=== PATIENT | male | born 1960 | race Two or more races ===

== ENCOUNTER 2017-05-16 08:39 | Day surgery (SDC) | payer OTHER ==
[2017-05-15 10:36] VITALS: BMI 31.8
[2017-05-16] MEDS ORDERED: PROPOFOL 20 ML ONE ×3 (09:57)
[2017-05-16] MEDS ORDERED: LIDOCAINE HCL 2% (20ML MULTI-DOSE VIAL) NR ONE (09:57)
[2017-05-16] MEDS ORDERED: LIDOCAINE HCL/PF 2% SDV 5ML VIAL ONE (09:57)
[2017-05-16 10:42] VITALS: TEMP 98.2
[2017-05-16 14:23] VITALS: BP 102/61; PULSE 71
--- NOTE | 2017-05-19 11:09 | PATH ---
Surgical Pathology Report Patient Name: WILMA CA [facility]. Rec. #: [id number] /Age/Gender: 1960 (Age: 57) / M Account: [id number] Location: U-ENDOSCOPY Taken: 05/16/2017 Received: 05/16/2017 Reported: 05/19/2017 Physicians: Arvin Lanier M.D. Specimen(s) Received A: BX ANTRUM B: BX GE JUNCTION Clinical History Acid reflux, dyspepsia Distal esophagitis Final Diagnosis A. STOMACH, ANTRUM, BIOPSY: FOCAL MILD CHRONIC GASTRITIS. IMMUNOSTAIN FOR H. PYLORI IS NEGATIVE. B. GE JUNCTION, BIOPSY: SQUAMOUS AND GASTRIC MUCOSA WITH CHRONIC INFLAMMATION AND PAPILLOMATOSIS SUGGESTIVE OF REFLUX ESOPHAGITIS. NO INTESTINAL METAPLASIA IDENTIFIED (NO BAEZ'S IDENTIFIED). Electronically Signed Yogi Nazario M.D. Gross Description A. Received in formalin, labeled "biopsy antrum" are 3 roldan, irregular portions of soft tissue ranging from 0.1-0.6 cm. in greatest dimension. The specimens are submitted in toto in one cassette. B. Received in formalin, labeled "biopsy GE junction" are 4 roldan, irregular portions of soft tissue ranging from 0.1-0.5 cm. in greatest dimension. The specimens are submitted in toto in one cassette. /05/16/2017 saudi05/16/2017
== END 2017-05-16 12:20 | disposition home or self-care (01) ==
LOC: JASU-ENDO 08:39
PROVIDERS: ATTEND Internal Medicine Gastroenterology
PROC: 0DB68ZX Excision of Stomach, Via Natural or Artificial Opening Endoscopic, Diagnostic (ICD-10-PCS; 2017-05-16)
PROC: 0DB48ZX Excision of Esophagogastric Junction, Via Natural or Artificial Opening Endoscopic, Diagnostic (ICD-10-PCS; principal; 2017-05-16 10:00)
DX: K20.9 Esophagitis, unspecified (principal); K31.7 Polyp of stomach and duodenum
CPT/HCPCS: 88305-TC; 88342-TC

== ENCOUNTER 2019-11-02 09:23 | Day surgery (SDC) | payer OTHER ==
[2019-11-01 14:01] VITALS: BMI 30.9
[2019-11-02 10:35] VITALS: TEMP 98.1
[2019-11-02 11:05] VITALS: PULSE 65
[2019-11-02 12:35] VITALS: BP 133/76
--- NOTE | 2019-11-03 16:20 | PATH ---
Surgical Pathology Report Patient Name: WILMA CA [facility]. Rec. #: [id number] /Age/Gender: 1960 (Age: 59) / M Account: [id number] Location: U-ENDOSCOPY Taken: 11/02/2019 Received: 11/02/2019 Reported: 11/03/2019 Physicians: Robb Castro M.D. Specimen(s) Received A: PROXIMAL TRANSVERSE COLON POLYP B: DISTAL TRANSVERSE COLON POLYP Clinical History History of colon polyps Postoperative diagnosis: Colon polyps Final Diagnosis A. PROXIMAL TRANSVERSE COLON POLYP, POLYPECTOMY: TUBULAR ADENOMA. B. DISTAL TRANSVERSE COLON POLYP, POLYPECTOMY: TUBULAR ADENOMA. Electronically Signed Juana Cabrera M.D. Gross Description A. Received in formalin, labeled "proximal transverse colon polyp" is a roldan, irregular portion of soft tissue measuring 0.7 cm. in greatest dimension. The specimen is submitted in toto in one cassette. B. Received in formalin, labeled "distal transverse colon polyp" is a roldan, irregular portion of soft tissue measuring 0.6 cm. in greatest dimension. The specimen is submitted in toto in one cassette. DL/11/02/2019 saudi/11/02/2019
== END 2019-11-02 13:00 | disposition home or self-care (01) ==
LOC: JASU-ENDO 09:23
PROVIDERS: ATTEND Internal Medicine Gastroenterology
PROC: 0D5L8ZZ Destruction of Transverse Colon, Via Natural or Artificial Opening Endoscopic (ICD-10-PCS; principal; 2019-11-02 10:15)
DX: Z12.11 Encounter for screening for malignant neoplasm of colon (principal); Z86.010 Personal history of colon polyps; I10 Essential (primary) hypertension; E11.9 Type 2 diabetes mellitus without complications; Z79.84 Long term (current) use of oral hypoglycemic drugs
CPT/HCPCS: 88305-TC

== ENCOUNTER 2019-11-30 06:32 | Inpatient (IN) | payer OTHER ==
--- NOTE | 2019-11-30 08:03 | PDOC ---
History of Present Illness - General Chief Complaint: Urinary Problem Stated Complaint: FEVER,URINARY PROBLEM Time Seen by Provider: 11/30/19 07:29 History Source: Patient Exam Limitations: Clinical Condition - History of Present Illness Initial Comments: 11/30/19 07:58 Patient with past medical history of hkb-myldyra-ozdlmvzms diabetes, hyperlipidemia and hypertension on meds presented with complaint of 1 day history of urinary urgency, dysuria and frequency. Patient also reported whole body aches upon waking patient report fever of 102 F overnight which has self improved without medication this morning. Denies nausea, vomiting, abdominal pain, shortness of breath, dizziness. Patient did not take anything for symptoms. Patient denies any other symptoms Is this a multiple visit Asthma Patient?: No Timing/Duration: 24 hours Past History - Past Medical History Allergies/Adverse Reactions: Allergies Allergy/AdvReac Type Severity Reaction Status Date / Time doxycycline AdvReac Rash Verified 11/30/19 07:05 iodine AdvReac Nausea Verified 11/30/19 07:05 Home Medications: Ambulatory Orders Ascorbic Acid [Vitamin C] 250 mg PO DAILY 05/15/17 Aspirin [ASA -] 81 mg PO DAILY 05/15/17 Cholecalciferol (Vitamin D3) [Vitamin D -] 400 unit PO DAILY 05/15/17 Multivit-Min/FA/Lycopen/Lutein [Centrum Silver Men Tablet] 1 each PO DAILY 05/15 Ramipril 2.5 mg PO HS 05/15/17 Vitamin B Complex 1 tab PO DAILY 05/15/17 Vitamin E 1 tab PO ASDIR 05/15/17 Zinc 50 mg PO WEEKLY 05/15/17 Atorvastatin Ca [Lipitor] 20 mg PO HS 11/01/19 L.acidoph,Paracasei, B.lactis [Probiotic] 1 each PO DAILY 11/02/19 metFORMIN HCL [Metformin HCl] 500 mg PO BID 11/30/19 Cardiac Disorders: Yes (CARDIAC STENTS) COPD: No Diabetes: Yes (NIDDM) GI Disorders: Yes (ACID REFLUX) Hypercholesterolemia: Yes Liver Disease: Yes (FATTY LIVER DISEASE) Other medical history: renal stones - Psycho Social/Smoking Cessation Hx Smoking History: Never smoked Have you smoked in the past 12 months: No If you are a former smoker, when did you quit?: 2005 Hx Alcohol Use: Yes (RARELY) Drug/Substance Use Hx: No Substance Use Type: None Hx Substance Use Treatment: No Review of Systems - Review of Systems Able to Perform ROS?: Yes Is the patient limited Indian proficient: No Constitutional: Yes: Chills, Fever, Malaise HEENTM: No: Symptoms Reported, See HPI, Eye Pain, Blurred Vision, Tearing, Recent change in vision, Double Vision, Cataracts, Ear Pain, Ocular Prothesis, Ear Discharge, Nose Pain, Nose Congestion, Tinnitus, Nose Bleeding, Hearing Loss , Throat Pain, Throat Swelling, Mouth Pain, Dental Problems, Difficulty Swallowing, Mouth Swelling, Other Respiratory: No: Symptoms reported, See HPI, Cough, Orthopnea, Shortness of Breath, SOB with Exertion, SOB at Rest, Stridor, Wheezing, Productive cough, Hemoptysis, Other Cardiac (ROS): No: Symptoms Reported, See HPI, Chest Pain, Edema, Irregular Heart Rate, Lightheadedness, Palpitations, Syncope, Chest Tightness, Other ABD/GI: No: Symptoms Reported, See HPI, Abd. Pain w/ defecation, Constipated, Difficulty Swallowing, Nausea, Rectal Bleeding, Vomiting, Abdominal cramping : Yes: Symptoms Reported, See HPI, Discharge, Frequency, Urgency. No: Burning , Dysuria, Testicular Mass, Testicular Swelling, Testicular Pain Integumentary: No: Symptoms Reported Neurological: No: Symptoms reported All Other Systems: Reviewed and Negative *Physical Exam - Vital Signs Last Vital Signs Temp Pulse Resp BP Pulse Ox 98.8 F 107 H 18 95/41 L 98 11/30/19 07:11 11/30/19 07:11 11/30/19 07:11 11/30/19 07:11 11/30/19 07:11 - Physical Exam General Appearance: Yes: Nourished, Appropriately Dressed. No: Apparent Distress HEENT: positive: Normal ENT Inspection Neck: positive: Supple Respiratory/Chest: positive: Lungs Clear, Normal Breath Sounds. negative: Respiratory Distress, Accessory Muscle Use Cardiovascular: positive: Regular Rhythm, Regular Rate Gastrointestinal/Abdominal: positive: Normal Bowel Sounds, Flat. negative: Tender Musculoskeletal: positive: Normal Inspection Extremity: positive: Normal Inspection Integumentary: positive: Normal Color Neurologic: positive: Fully Oriented, Alert, Normal Response ED Treatment Course - LABORATORY CBC & Chemistry Diagram: 11/30/19 07:47 11/30/19 07:47 Medical Decision Making - Medical Decision Making 11/30/19 08:00 Patient with past medical history of fqf-xdjrcen-ubnopqjte diabetes, hyperlipidemia and hypertension on meds presented with complaint of 1 day history of urinary urgency, dysuria and frequency. Patient also reported whole body aches upon waking patient report fever of 102 F overnight which has self improved without medication this morning. Denies nausea, vomiting, abdominal pain, shortness of breath, dizziness. Patient did not take anything for symptoms. Patient denies any other symptoms Clinical exam unremarkable with patient afebrile. Lungs clear to auscultation bilateral normal cardio exam. Patient noted to have hypotensive but patient reporting his blood pressure with was low and is not unusual to have this low blood pressure. UA, urine culture lab ordered. CBC and chemistry lab ordered. Treat based on lab results 11/30/19 08:48 CBC shows elevated WBC of 27. UA shows moderate bacteria, positive leukocyte and positive nitrate. Given patient with complaint of malaise and intermittent back pain, would admit patient for possible pyelonephritis for IV antibiotics. We will add blood cultures before IV antibiotics. 11/30/19 09:25 Microblog sent to hospitalist for admission. Patient noted in dose of Zosyn 3.375 g IV and awaiting callback from medicine team 11/30/19 09:59 Patient seen by medicine team and accepted admission to Dr. Ruby. Spiral CT ordered to rule out renal stone as requested by medicine team Discharge - Discharge Information Problems reviewed: Yes Clinical Impression/Diagnosis: Pyelonephritis, acute, UTI symptoms Condition: Stable - Admission Yes - Follow up/Referral Referrals: Julio Saavedra MD [Primary Care Provider] - - Patient Discharge Instructions - Post Discharge Activity
[2019-11-30 08:13] LABS: BASO % 0.4 % (0-2.0); HEMATOCRIT 41.7 % (35.4-49); HEMOGLOBIN 13.9 GM/dL (11.7-16.9); LYMPH % 3.8 % (8-40); MCH 32.7 pg (25.7-33.7); MCHC 33.3 g/dl (32.0-35.9); MEAN PLT VOLUME 7.9 fl (7.5-11.1); MONO % 7.6 % (3.8-10.2); NEUT % 88.2 % (42.8-82.8); PLATELET COUNT 229 K/MM3 (134-434); RBC 4.25 M/mm3 (4.00-5.60); RDW 12.9 % (11.9-15.9)
[2019-11-30 08:25] LABS: EPI CELLS 1.3 /HPF (0-5/HPF); HYALINE CASTS 5 /lpf (0-8); PH,URINE 5.5 (5.0-8.0); URINE APPEARANCE CLOUDY; URINE BACTERIA 4625.6 /hpf (NEGATIVE); URINE BILIRUBIN NEGATIVE (NEGATIVE); URINE COLOR DK YELLOW; URINE GLUCOSE (UA) 2+ (NEGATIVE); URINE KETONE 1+ (NEGATIVE); URINE LEUK ESTERASE 2+ (NEGATIVE); URINE NITRITE POSITIVE (NEGATIVE); URINE PROTEIN 1+ (NEGATIVE); URINE RBC 429 /hpf (0-4); URINE UROBILINOGEN 0.2 mg/dL (0.2-1.0); URINE WBC 226 /hpf (0-5)
[2019-11-30] MEDS ORDERED: SODIUM CHLORIDE 1,000 ML IV ONE (08:27)
--- NOTE | 2019-11-30 08:27 | PDOC ---
*Physical Exam - Vital Signs Last Vital Signs Temp Pulse Resp BP Pulse Ox 98.8 F 107 H 18 95/41 L 98 11/30/19 07:11 11/30/19 07:11 11/30/19 07:11 11/30/19 07:11 11/30/19 07:11 ED Treatment Course - LABORATORY CBC & Chemistry Diagram: 12/03/19 07:34 12/03/19 07:34 - ADDITIONAL ORDERS Additional order review: Laboratory Results 11/30/19 07:00 Urine Color Dk yellow Urine Appearance Cloudy Urine pH 5.5 Ur Specific [place] 1.025 Urine Protein 1+ H Urine Glucose (UA) 2+ H Urine Ketones 1+ H Urine Blood 3+ H Urine Nitrite Positive H Urine Bilirubin Negative Urine Urobilinogen 0.2 Ur Leukocyte Esterase 2+ H Urine WBC (Auto) 226 Urine RBC (Auto) 429 Urine Casts (Auto) 5 U Epithel Cells (Auto) 1.3 Urine Bacteria (Auto) 4625.6 11/30/19 07:47 RBC 4.25 MCV 98.0 H MCHC 33.3 RDW 12.9 MPV 7.9 Neutrophils % 88.2 H Lymphocytes % 3.8 L Monocytes % 7.6 Eosinophils % 0.0 Basophils % 0.4 Medical Decision Making - Medical Decision Making 11/30/19 08:25 The patient was seen and evaluated in conjunction with PEACE Munoz under my direct supervision, ancillary studies were reviewed. I independently interviewed and evaluated the patient and I agree with the plan as outlined by PEACE Munoz. pt is a NIDDM, HTN, HL presenting w 1 day of dysuria/frequency, body aches and fever. Denies abd pain, nv, cp, sob, sob, back pain. exam non focal withou tenderness or cva tenderness. bp soft, will give fluids labs noted for leukocytosis. and UA c/w uti 11/30/19 09:25 will give zosyn will admit for further mangaement of uti Discharge - Discharge Information Problems reviewed: Yes Clinical Impression/Diagnosis: Pyelonephritis, acute, UTI symptoms Condition: Stable - Follow up/Referral - Patient Discharge Instructions - Post Discharge Activity
[2019-11-30 08:45] LABS: ALBUMIN 4.2 g/dl (3.4-5.0); BILIRUBIN,TOTAL 1.1 mg/dL (0.2-1); BLOOD UREA NITROGEN 19.4 mg/dL (7-18); CALCIUM 9.1 mg/dL (8.5-10.1); CREATININE 0.9 mg/dL (0.55-1.3); TOT PROT 6.9 g/dl (6.4-8.2)
[2019-11-30] MEDS ORDERED: PIPERACILLIN/TAZOB 3.375 GM 3.375 GM in DEXTROSE 5%-WATER - 50 ML IVPB ONE (09:24)
[2019-11-30] MEDS ORDERED: PIPERACILLIN/TAZOB 3.375 GM 3.375 GM/50 ML BAG IVPB ONE ×2 (09:30→16:09)
[2019-11-30] MEDS ORDERED: MORPHINE SULFATE 2 MG/ML VIAL IVPUSH PRN (10:16)
[2019-11-30] MEDS ORDERED: PIPERACILLIN/TAZOB 3.375 GM 3.375 GM in DEXTROSE 5%-WATER - 50 ML IVPB SCH (10:30)
--- NOTE | 2019-11-30 10:30 | HP ---
CHIEF COMPLAINT: abdominal pain, fever, chills, body aches PCP: Dr. Saavedra HISTORY OF PRESENT ILLNESS: Pt. is a 59 y.o. M w/ PMHx. of NIDDM (Diagnosed 8- 10 years ago), HLD, HTN, GERD(EGD in 2017 showing mild esophagitis), Renal Stones (6-7x in past, last 10 years ago), CAD (s/p 3 stents) presents after 1 day of lower abdominal pain, generalized body aches and fever measured at home to 102 degrees. Pt. states that he also has intermittent bilateral lower back pain. Pt. endorses increased urgency, but feels like he has not completely voided. Pt. denies any overt hematuria, nausea, vomiting, recent illness, or recent antibiotic use. Pt. had a colonoscopy in early October of which 2 tubular adenomas were removed by Dr. Castro. Pt. last saw Dr. Saavedra 1 month ago where a CBC was drawn and a mildly elevated, Pt. was scheduled to follow up in 6 months. Pt. states that he does not check his BGM everyday but during this visit Dr. Saavedra says that his sugars have been steadily increasing. Pt. states he saw Dr. Hodgson last week and everything was ok. ER course was notable for: (1) 1L NS, BCx, UCx. LA (2) (3) Recent Travel: No PAST MEDICAL HISTORY: As above PAST SURGICAL HISTORY: TURP (5-6 years ago), 3 stents placed Social History: Smokin/2 -2PPD x 19 years, quit 2005 Alcohol: Occasional glass of wine Drugs: Denies Diet: "Whatever my sister prepares"- Mostly Chicken and pasta, very little vegetables, lots of water. Pt. works as a household personal assistant and Pet-sitter. Family Hx.: Heart Disease in Mother, Father, Aunt and uncles with SCD in Father( 50s-60s) and Uncles(70s), Older Sister has kidney stones. Allergies doxycycline Adverse Reaction (Verified 11/30/19 07:05) Rash iodine Adverse Reaction (Verified 11/30/19 07:05) Nausea HOME MEDICATIONS: Home Medications Medication Instructions Recorded Ascorbic Acid [Vitamin C] 250 mg PO DAILY 05/15/17 Aspirin [ASA -] 81 mg PO DAILY 05/15/17 Cholecalciferol (Vitamin D3) 400 unit PO DAILY 05/15/17 [Vitamin D -] Multivit-Min/FA/Lycopen/Lutein 1 each PO DAILY 05/15/17 [Centrum Silver Men Tablet] Ramipril 2.5 mg PO HS 05/15/17 Vitamin B Complex 1 tab PO DAILY 05/15/17 Vitamin E 1 tab PO ASDIR 05/15/17 Zinc 50 mg PO WEEKLY 05/15/17 Atorvastatin Ca [Lipitor] 20 mg PO HS 11/01/19 L.acidoph,Paracasei, B.lactis 1 each PO DAILY 11/02/19 [Probiotic] metFORMIN HCL [Metformin HCl] 500 mg PO BID 11/30/19 REVIEW OF SYSTEMS As above PHYSICAL EXAMINATION Vital Signs - 24 hr 11/30/19 11/30/19 07:11 10:05 Temperature 98.8 F 98.4 F Pulse Rate 107 H Pulse Rate [ 89 Left] Respiratory 18 Rate Blood Pressure 95/41 L Blood Pressure 111/69 [Left] O2 Sat by Pulse 98 96 Oximetry (%) GENERAL: Awake, alert, and fully oriented, in no acute distress. HEAD: Normal with no signs of trauma. EYES: Sclera anicteric, conjunctiva clear. EARS, NOSE, THROAT: Ears normal, nares patent, oropharynx clear without exudates. Dry mucous membranes. LUNGS: Breath sounds equal, clear to auscultation bilaterally. No wheezes, and no crackles. No accessory muscle use. HEART: Regular rate and rhythm, normal S1 and S2 without murmur, rub or gallop. ABDOMEN: Soft, lower abdominal tenderness most prominent in suprapubic region, not distended, normoactive bowel sounds, no guarding, no rebound, no masses. MUSCULOSKELETAL: No CVA tenderness. UPPER EXTREMITIES: 2+ radial pulses, warm, well-perfused. No cyanosis. No clubbing. No peripheral edema. LOWER EXTREMITIES: well-perfused. No calf tenderness. No peripheral edema. NEUROLOGICAL: Normal speech. Gait not assessed PSYCHIATRIC: Cooperative. Good eye contact. Appropriate mood and affect. SKIN: Warm, dry, normal turgor, small furuncle at nape Laboratory Results - last 24 hr 11/30/19 11/30/19 11/30/19 07:00 07:47 07:47 WBC 27.0 H RBC 4.25 Hgb 13.9 Hct 41.7 MCV 98.0 H MCH 32.7 MCHC 33.3 RDW 12.9 Plt Count 229 MPV 7.9 Absolute Neuts (auto) 23.8 H Neutrophils % 88.2 H Lymphocytes % 3.8 L Monocytes % 7.6 Eosinophils % 0.0 Basophils % 0.4 Nucleated RBC % 0 Sodium 136 Potassium 4.0 Chloride 104 Carbon Dioxide 24 Anion Gap 9 BUN 19.4 H Creatinine 0.9 Est GFR (CKD-EPI)AfAm 106.46 Est GFR (CKD-EPI)NonAf 91.86 Random Glucose 183 H Lactic Acid Calcium 9.1 Total Bilirubin 1.1 H AST 20 ALT 43 Alkaline Phosphatase 91 Total Protein 6.9 Albumin 4.2 Urine Color Dk yellow Urine Appearance Cloudy Urine pH 5.5 Ur Specific [place] 1.025 Urine Protein 1+ H Urine Glucose (UA) 2+ H Urine Ketones 1+ H Urine Blood 3+ H Urine Nitrite Positive H Urine Bilirubin Negative Urine Urobilinogen 0.2 Ur Leukocyte Esterase 2+ H Urine WBC (Auto) 226 Urine RBC (Auto) 429 Urine Casts (Auto) 5 U Epithel Cells (Auto) 1.3 Urine Bacteria (Auto) 4625.6 11/30/19 09:02 WBC RBC Hgb Hct MCV MCH MCHC RDW Plt Count MPV Absolute Neuts (auto) Neutrophils % Lymphocytes % Monocytes % Eosinophils % Basophils % Nucleated RBC % Sodium Potassium Chloride Carbon Dioxide Anion Gap BUN Creatinine Est GFR (CKD-EPI)AfAm Est GFR (CKD-EPI)NonAf Random Glucose Lactic Acid 2.0 Calcium Total Bilirubin AST ALT Alkaline Phosphatase Total Protein Albumin Urine Color Urine Appearance Urine pH Ur Specific [place] Urine Protein Urine Glucose (UA) Urine Ketones Urine Blood Urine Nitrite Urine Bilirubin Urine Urobilinogen Ur Leukocyte Esterase Urine WBC (Auto) Urine RBC (Auto) Urine Casts (Auto) U Epithel Cells (Auto) Urine Bacteria (Auto) ASSESSMENT/PLAN: Pt. is a 59 y.o. M w/ PMHx. of NIDDM (Diagnosed 8-10 years ago), HLD, HTN, GERD( EGD in 2017), Renal Stones (6-7x in past, last 10 years ago), CAD (s/p 3 stents ) presents after 1 day of lower abdominal pain, generalized body aches and fever measured at home to 102 degrees. #Sepsis 2/2 Pyelonephritis w/ hematuria Hx. of multiple Renal stones, Pt. takes multiple vitamin supplements (advised by Dr. Castro to stop Vit.E, and advised by Dr. Hodgson to stop Vit. C) C/w Zosyn 3.375 Q6H according to Uptodate algorithm for complicated UTI. ID Consult appreciated Consult to Dr. Hodgson appreciated for possible intervention pending Spiral CT results f/u Renal and Bladder US Tylenol and Morphine PRN for pain UA: 1+ protein, 2+ glucose,1+ ketones, 3+ blood, Nitrite+, 2+ LE, WBC: 226, bacteria, 4000+; f/u BCx and UCx f/u Magnesium level Leukocytosis to 27k; initial BP 95/41, Rpt. is 111/69- will c/w IVF (Pt. states his BP normally runs low, cannot give exact numbers) Hold PO MVIs Pt. would benefit from Rpt. UA prior to discharge to ensure resolution of hematuria, given Pt's extensive smoking history and stable pulmonary nodule. LA: 2.0 #NIDDM Glucose: 183 Hold Metformin c/w BGM ACHS c/w ISS ACHS f/u A1c #HTN/HLD/CAD c/w Ramipril, Lipitor and ASA #FEN LR @ 75 monitor electrolytes and replete as needed Na restricted/Diabetic diet #DVT. Ppx. SCDs/ TEDs holding AC given hematuria. Hgb stable Visit type - Emergency Visit Emergency Visit: Yes ED Registration Date: 11/30/19 Care time: The patient presented to the Emergency Department on the above date and was hospitalized for further evaluation of their emergent condition. - New Patient This patient is new to me today: Yes Date on this admission: 11/30/19 - Critical Care Critical Care patient: No ATTENDING PHYSICIAN STATEMENT I saw and evaluated the patient. I reviewed the resident's note and discussed the case with the resident. I agree with the resident's findings and plan as documented. SUBJECTIVE: OBJECTIVE: ASSESSMENT AND PLAN:
[2019-11-30] MEDS: LACTATED RINGERS SOLUTION 1,000 ML IV SCH (10:31)
[2019-11-30 10:46] LABS: MAGNESIUM 1.8 mg/dL (1.8-2.4)
[2019-11-30 11:32] LABS: ANISOCYTOSIS 2+; MACROCYTOSIS 0; OVALOCYTE 1+; PLATELET ESTIMATE NORMAL
[2019-11-30] MEDS: INSULIN SLIDING SCALE (NOVOLOG) 1 VIAL SQ SCH ×3 (12:55→21:49)
--- NOTE | 2019-11-30 14:08 | PN ---
Teaching Attending Note Name of Resident: Efren Quintero ATTENDING PHYSICIAN STATEMENT I saw and evaluated the patient. I reviewed the resident's note and discussed the case with the resident. I agree with the resident's findings and plan as documented. SUBJECTIVE: Pt. is a 59 y.o. M w/ PMHx. of T2DM, HLD, HTN, GERD , Renal Stones, CAD (s/p 3 stents) presents after 1 day of lower abdominal pain, generalized body aches and fever of 102 at home. OBJECTIVE: Vital Signs Temperature 98.4 F 11/30/19 10:05 Pulse Rate 89 11/30/19 10:05 Respiratory Rate 18 11/30/19 07:11 Blood Pressure 111/69 11/30/19 10:05 O2 Sat by Pulse Oximetry (%) 96 11/30/19 10:05 GENERAL: The patient is awake, alert, and fully oriented, in no acute distress. HEAD: Normal with no signs of trauma. EYES: PERRL, extraocular movements intact, sclera anicteric, conjunctiva clear. NECK: Trachea midline, full range of motion, supple. LUNGS: Breath sounds equal, clear to auscultation bilaterally, no wheezes, no crackles, no accessory muscle use. HEART: Regular rate and rhythm, S1, S2 without murmur, rub or gallop. ABDOMEN: Soft, nontender, nondistended, normoactive bowel sounds, no guarding, no rebound, no hepatosplenomegaly, no masses. EXTREMITIES: 2+ pulses, warm, well-perfused, no edema. NEUROLOGICAL: Cranial nerves II through XII grossly intact. Normal speech, gait not observed. PSYCH: Normal mood, normal affect. SKIN: Warm, dry, normal turgor, no rashes or lesions noted CBCD WBC 27.0 K/mm3 (4.0-10.0) H 11/30/19 07:47 RBC 4.25 M/mm3 (4.00-5.60) 11/30/19 07:47 Hgb 13.9 GM/dL (11.7-16.9) 11/30/19 07:47 Hct 41.7 % (35.4-49) 11/30/19 07:47 MCV 98.0 fl (80-96) H 11/30/19 07:47 MCHC 33.3 g/dl (32.0-35.9) 11/30/19 07:47 RDW 12.9 % (11.9-15.9) 11/30/19 07:47 Plt Count 229 K/MM3 (134-434) 11/30/19 07:47 MPV 7.9 fl (7.5-11.1) 11/30/19 07:47 CMP Sodium 136 mmol/L (136-145) 11/30/19 07:47 Potassium 4.0 mmol/L (3.5-5.1) 11/30/19 07:47 Chloride 104 mmol/L (98-107) 11/30/19 07:47 Carbon Dioxide 24 mmol/L (21-32) 11/30/19 07:47 Anion Gap 9 MMOL/L (8-16) 11/30/19 07:47 BUN 19.4 mg/dL (7-18) H 11/30/19 07:47 Creatinine 0.9 mg/dL (0.55-1.3) 11/30/19 07:47 Random Glucose 183 mg/dL (74-106) H 11/30/19 07:47 Calcium 9.1 mg/dL (8.5-10.1) 11/30/19 07:47 Total Bilirubin 1.1 mg/dL (0.2-1) H 11/30/19 07:47 AST 20 U/L (15-37) 11/30/19 07:47 ALT 43 U/L (13-61) 11/30/19 07:47 Alkaline Phosphatase 91 U/L (45-117) 11/30/19 07:47 Total Protein 6.9 g/dl (6.4-8.2) 11/30/19 07:47 Albumin 4.2 g/dl (3.4-5.0) 11/30/19 07:47 Current Medications Generic Name Dose Route Start Last Admin Trade Name Freq PRN Reason Stop Dose Admin Acetaminophen 650 mg 11/30/19 10:16 Tylenol - PO Q4H PRN PAIN LEVEL 4 - 6 Aspirin 81 mg 12/01/19 10:00 Asa - PO DAILY SEVERIANO Atorvastatin Calcium 20 mg 11/30/19 22:00 Lipitor - PO HS SEVERIANO Lactated Ringer's 1,000 mls @ 75 mls/hr 11/30/19 10:30 11/30/19 10:31 Lactated Ringers Solution IV 75 mls/hr ASDIR SEVERIANO Administration Piperacillin Sod/Tazobactam 50 mls @ 100 mls/hr 11/30/19 15:00 Sod 3.375 gm/ Dextrose IVPB Q6H-IV [facility] Protocol Piperacillin Sod/Tazobactam 50 mls @ 100 mls/hr 11/30/19 15:00 Sod 3.375 gm/ Dextrose IVPB 12/01/19 03:29 Q6H-IV [facility] Insulin Aspart 1 vial 11/30/19 11:00 11/30/19 12:55 Novolog Vial Sliding Scale - SQ Not Given ACHS [facility] Protocol Morphine Sulfate 2 mg 11/30/19 10:16 Morphine Sulfate IVPUSH Q4H PRN PAIN LEVEL 7 - 10 Ramipril 2.5 mg 11/30/19 22:00 Altace - PO HS [facility] Home Medications Medication Instructions Recorded Ascorbic Acid [Vitamin C] 250 mg PO DAILY 05/15/17 Aspirin [ASA -] 81 mg PO DAILY 05/15/17 Cholecalciferol (Vitamin D3) 400 unit PO DAILY 05/15/17 [Vitamin D -] Multivit-Min/FA/Lycopen/Lutein 1 each PO DAILY 05/15/17 [Centrum Silver Men Tablet] Ramipril 2.5 mg PO HS 05/15/17 Vitamin B Complex 1 tab PO DAILY 05/15/17 Vitamin E 1 tab PO ASDIR 05/15/17 Zinc 50 mg PO WEEKLY 05/15/17 Atorvastatin Ca [Lipitor] 20 mg PO HS 11/01/19 L.acidoph,Paracasei, B.lactis 1 each PO DAILY 11/02/19 [Probiotic] metFORMIN HCL [Metformin HCl] 500 mg PO BID 11/30/19 Urine Test Results Urine Color Dk yellow 11/30/19 07:00 Urine Appearance Cloudy 11/30/19 07:00 Urine pH 5.5 (5.0-8.0) 11/30/19 07:00 Ur Specific [place] 1.025 (1.010-1.035) 11/30/19 07:00 Urine Protein 1+ (NEGATIVE) H 11/30/19 07:00 Urine Glucose (UA) 2+ (NEGATIVE) H 11/30/19 07:00 Urine Ketones 1+ (NEGATIVE) H 11/30/19 07:00 Urine Blood 3+ (NEGATIVE) H 11/30/19 07:00 Urine Nitrite Positive (NEGATIVE) H 11/30/19 07:00 Urine Bilirubin Negative (NEGATIVE) 11/30/19 07:00 Ur Leukocyte Esterase 2+ (NEGATIVE) H 11/30/19 07:00 CT of abdomen and pelvis: no hydronephrosis, several small bl nonobstructing renal calculi possible mass like urinary bladder density on US, cystoscopy suggested. US: Complex right mild renal cyst ASSESSMENT AND PLAN: Pt. is a 59 y.o. M w/ PMHx. of NIDDM (Diagnosed 8-10 years ago), HLD, HTN, GERD( EGD in 2017), Renal Stones (6-7x in past, last 10 years ago), CAD (s/p 3 stents ) presents after 1 day of lower abdominal pain, generalized body aches and fever measured at home to 102 degrees. #Sepsis due to Pyelonephritis with hematuria on IV zosyn continue,Id on the case # Acute Pyelonephritis on IV zosyn #Complex right renal cyst: urology consult dr Estes #T2DM: ss with coverage ,Hold Metformin, check A1c, #HTN/HLD/CAD continue with Ramipril, Lipitor and ASA DVT: SCDs/ TEDs : No AC due to having hematuria. H/H stable will order influenza a/b since patient stated that felt like had a flu like symptoms
[2019-11-30] MEDS: PIPERACILLIN/TAZOB 3.375 GM 3.375 GM in DEXTROSE 5%-WATER - 50 ML IVPB SCH ×2 (16:14→21:34)
--- NOTE | 2019-11-30 16:33 | PN ---
Progress Note (short form) - Note Progress Note: ID consult dictated imp/reccd 59 yo man admitted form home with fever and difficulty urinating - started last night prior uti 8/10 years ago no recent procedures ct scan with bladder mass and large prostate urologist is dr bocanegra had surgery with him about 5 years ago UTI bladder mass bph continue zosyn f/u cultures is am urology to see Problem List - Problems (1) UTI (urinary tract infection) Code(s): N39.0 - URINARY TRACT INFECTION, SITE NOT SPECIFIED (2) Bladder mass Code(s): N32.89 - OTHER SPECIFIED DISORDERS OF BLADDER (3) BPH (benign prostatic hyperplasia) Code(s): N40.0 - BENIGN PROSTATIC HYPERPLASIA WITHOUT LOWER URINRY TRACT SYMP
[2019-11-30 17:21] VITALS: BMI 27.8
[2019-11-30] MEDS: ACETAMINOPHEN 325 MG TABLET (FP) PO PRN (17:23)
--- NOTE | 2019-11-30 18:27 | CON.GU ---
Consult Consult Specialty:: Referred by:: medicine Reason for Consultation:: pyelonephritis - History of Present Illness Chief Complaint: pyelonephritis History of Present Illness: 59 year old male who had an elevated WBC as an outpt and then developed high fever and urinary frequency. CT shows no obstruction. small punctate bilateral stones non obstructing. - History Source History Provided By: Patient Limitations to Obtaining History: No Limitations - Past Medical History Renal/: Yes: BPH, UTI - Alcohol/Substance Use Hx Alcohol Use: Yes (RARELY) - Smoking History Smoking history: Never smoked Have you smoked in the past 12 months: No If you are a former smoker, when did you quit?: 2005 Home Medications - Allergies Allergies/Adverse Reactions: Allergies Allergy/AdvReac Type Severity Reaction Status Date / Time doxycycline AdvReac Rash Verified 11/30/19 07:05 iodine AdvReac Nausea Verified 11/30/19 07:05 - Home Medications Home Medications: Ambulatory Orders Ascorbic Acid [Vitamin C] 250 mg PO DAILY 05/15/17 Aspirin [ASA -] 81 mg PO DAILY 05/15/17 Cholecalciferol (Vitamin D3) [Vitamin D -] 400 unit PO DAILY 05/15/17 Multivit-Min/FA/Lycopen/Lutein [Centrum Silver Men Tablet] 1 each PO DAILY 05/15 Ramipril 2.5 mg PO HS 05/15/17 Vitamin B Complex 1 tab PO DAILY 05/15/17 Vitamin E 1 tab PO ASDIR 05/15/17 Zinc 50 mg PO WEEKLY 05/15/17 Atorvastatin Ca [Lipitor] 20 mg PO HS 11/01/19 L.acidoph,Paracasei, B.lactis [Probiotic] 1 each PO DAILY 11/02/19 metFORMIN HCL [Metformin HCl] 500 mg PO BID 11/30/19 Review of Systems - Review of Systems Constitutional: reports: Fever Gastrointestinal: reports: Abdominal Pain Genitourinary: reports: Burning, Frequency Physical Exam- Vital Signs: Vital Signs Temperature 102.3 F H 11/30/19 17:13 Pulse Rate 105 H 11/30/19 17:13 Respiratory Rate 18 11/30/19 17:13 Blood Pressure 123/63 11/30/19 17:13 O2 Sat by Pulse Oximetry (%) 97 11/30/19 17:13 Renal/: Yes: CVA Tenderness - Left. No: CVA Tenderness - Right, Har[place] Present , Hematuria Pelvis: Yes: Bladder Non Palpable Labs: CBC, BMP 11/30/19 07:47 11/30/19 07:47 Imaging - Results Cat Scan: Report Reviewed Problem List - Problems (1) BPH (benign prostatic hyperplasia) Assessment/Plan: no evidence of obstruction. IV abx. no surgical interventon needed. pt told to follow up as outpt for cystoscopy Code(s): N40.0 - BENIGN PROSTATIC HYPERPLASIA WITHOUT LOWER URINRY TRACT SYMP (2) Pyelonephritis, acute Code(s): N10 - ACUTE PYELONEPHRITIS
--- NOTE | 2019-11-30 20:21 | CONS ---
INFECTIOUS DISEASE CONSULTATION DATE OF CONSULTATION: 11/30/2019 REQUESTING PHYSICIAN: The hospitalist service. This is a 59-year-old man with past medical history of xin-djtkxyd-xebsevjvg diabetes, hypertension. He has history of coronary artery disease and is status post 3 stents. Last night, on the night prior to admission, he felt all achy and hot. He had a low-grade fever that then became a temperature of 102. All night, he had discomfort on urination with decreased stream. He felt like all the urine would not come out and increased frequency. He had no rigors or shakes. He has had a UTI, the last 8-10 years ago. He has not been on any recent antibiotics. Presented to the emergency room where he was noted to have a white count of 26,000 and pyuria. He had a CAT scan of his abdomen and pelvis done, that revealed BPH and possible bladder mass. He was started on piperacillin/tazobactam. PRIMARY CARE PROVIDER: Julio Saavedra MD PAST MEDICAL HISTORY: Notable for rgh-ohavyyf-teomelxcm diabetes, hypertension, hyperlipidemia, GERD, renal stones, coronary artery disease. SURGICAL HISTORY: Notable for TURP which he had with Dr. Blair 5-6 years ago, and he has had 3 stents placed. There is no history of any travel. ALLERGIES: He is allergic to DOXYCYCLINE and IODINE PRODUCTS. SOCIAL HISTORY: He quit smoking in 2005. He is self-employed. He lives in [place], and there is no drug use. FAMILY HISTORY: Notable for heart disease. MEDICATIONS AT HOME: Include vitamin C, aspirin, vitamin D, multivitamins, Ramipril, vitamin B, vitamin E, zinc, atorvastatin, probiotics, and metformin. REVIEW OF SYSTEMS: As per HPI. PHYSICAL EXAMINATION: General: He is awake and alert, pleasant man in no acute distress. Vital Signs: Temperature is 99, pulse of 93, blood pressure 137/68. Respiratory rate is 18. Saturating 96% on room air. Of note, he has no pulmonary symptoms. HEENT: He is normocephalic. His eyes are anicteric. Neck: Supple. Lungs: Clear to auscultation. Heart: Regular rate and rhythm. Abdomen: Soft, nontender. He has mild suprapubic discomfort. Extremities: Without edema. LABORATORY DATA: White count is 27,000, hemoglobin 13.9, platelets are 229. BUN is 19 and creatinine 0.9. Urinalysis has 2+ leukocyte esterase with 226 white cells. Urine and blood cultures are pending. He had a bladder sonogram that showed complex right mid-renal cyst. He has a partially distended gallbladder with a mass-like density and a significantly enlarged prostate. In summary, this is a 59-year-old man with a UTI, bladder mass, BPH. I would continue Zosyn at this time. Follow up cultures with Urology to see. Further recommendations to follow. BENITO JEAN-BAPTISTE M.D. [id number]
[2019-11-30] MEDS ORDERED: DEXTROSE 5%-WATER - 50 ML IVPB ONE (21:21)
[2019-11-30] MEDS ORDERED: INSULIN (NOVOLOG) ASPART 100 UNITS/ML 10ML VIAL ONE (21:21)
[2019-11-30] MEDS ORDERED: PIPERACILLIN/TAZOBACTAM 3.375 GM VIAL IVPB ONE (21:21)
[2019-11-30] MEDS: ATORVASTATIN CA 20 MG TABLET (FP) PO SCH (21:48)
[2019-11-30] MEDS: RAMIPRIL 2.5 MG CAPSULE (FP) PO SCH (21:49)
[2019-12-01] MEDS ORDERED: DEXTROSE 5%-WATER - 50 ML IVPB ONE ×4 (02:13→21:28)
[2019-12-01] MEDS ORDERED: PIPERACILLIN/TAZOBACTAM 3.375 GM VIAL IVPB ONE ×4 (02:13→21:28)
[2019-12-01] MEDS: PIPERACILLIN/TAZOB 3.375 GM 3.375 GM in DEXTROSE 5%-WATER - 50 ML IVPB SCH ×3 (02:17→21:53)
[2019-12-01] MEDS: ACETAMINOPHEN 325 MG TABLET (FP) PO PRN ×2 (04:27→13:33)
[2019-12-01] MEDS: INSULIN SLIDING SCALE (NOVOLOG) 1 VIAL SQ SCH ×4 (06:24→21:53)
[2019-12-01] MEDS ORDERED: PT OWN MED DRAWER 7, Y5N ONE (08:54)
[2019-12-01 09:36] LABS: BASO % 0.3 % (0-2.0); EOS % 0.2 % (0-4.5); HEMOGLOBIN 13.3 GM/dL (11.7-16.9); MCH 32.6 pg (25.7-33.7); MCHC 33.3 g/dl (32.0-35.9); MEAN CELL VOLUME 97.9 fl (80-96); MEAN PLT VOLUME 7.5 fl (7.5-11.1); MONO % 4.9 % (3.8-10.2); NEUT % 86.6 % (42.8-82.8); PLATELET COUNT 191 K/MM3 (134-434); RBC 4.09 M/mm3 (4.00-5.60); RDW 13.2 % (11.9-15.9)
[2019-12-01 09:50] LABS: INR 1.62 (0.83-1.09); PROTHROMBIN TIME (PATIENT) 19.2 SEC (9.7-13.0)
[2019-12-01] MEDS: ASPIRIN 81 MG CHEWABLE TABLETS PO SCH (09:52)
[2019-12-01] MEDS: LACTATED RINGERS SOLUTION 1,000 ML IV SCH (09:52)
[2019-12-01 10:03] LABS: PLATELET ESTIMATE ADEQUATE
[2019-12-01 10:07] LABS: BLOOD UREA NITROGEN 22.8 mg/dL (7-18); CALCIUM 8.6 mg/dL (8.5-10.1); PHOSPHOROUS 2.3 mg/dL (2.5-4.9); POTASSIUM 3.6 mmol/L (3.5-5.1)
[2019-12-01] MEDS ORDERED: PIPERACILLIN/TAZOB 3.375 GM 3.375 GM in DEXTROSE 5%-WATER - 50 ML IVPB ONE (14:02)
--- NOTE | 2019-12-01 14:13 | PN ---
Teaching Attending Note Name of Resident: Jewel Ortiz ATTENDING PHYSICIAN STATEMENT I saw and evaluated the patient. I reviewed the resident's note and discussed the case with the resident. I agree with the resident's findings and plan as documented. SUBJECTIVE: no fever or chills today,still has discomfort with urination and suprapubic pain. no SOB. no diarreha. no cough. no SOB He feels much better today OBJECTIVE: NAD , awake, comfortable in bed MMM. CV: RRR, no MRG "Lungs: CTAB Abd: soft, ND, TTP in suprapubic area and LLQ, and RLQ. Nl BD Rectal by dr. Ortiz, prostate is enlarged but not tender . fullness over the posterior rectal wall Ext : No edema or erythema on LE ASSESSMENT AND PLAN: 59 y/o man with h/o DM , HLP, HTN, GERD, nephrolithiasis, CAD s/p stents, who presented with abd pain, fever and dysuria and was found to have sepsis due to UTI 1- Sepsis due to complicated UTI/Pyelonephritis. improved - urine with prelim: lactose fermenting GNR. blood cx neg x 24 hr - despite heterogenous enlarged prostate, there is no tendernesss on rectal exam. Unlikely has acute prostatitis - cont zosyn. - follow final cx results - CT, US results reviewed - cont IVF - R renal complex cyst is to be followed as out pt . Doubt abscess fromation 2- urinary bladder mass like density on US: seen by uro and Cystoscopy is planned as out pt 3- R renal cyst : out pt f/u 4- h/o Dm : SSI here . hold metformin . A1c noted 5- h/o HTN: cont Ramipril. monitor closely 6- Fullness in posterior rectal wall, f/u with GI for colonoscopy 7- hypophosphatemia : replete DVT PX: cont SCds , add heparin SQ
--- NOTE | 2019-12-01 17:52 | PN ---
Progress Note (short form) - Note Progress Note: still some discomfort urinating Vital Signs Period Temp Pulse Resp BP Sys/Maher Pulse Ox Last 24 Hr 99.0 F-101.8 F 19-20 19-102 105-136/56-72 96-97 cor-rrr lungs clear abd soft, nt no cvat ext no edema CBC, BMP 12/01/19 08:56 12/01/19 08:56 Microbiology 11/30/19 09:04 Blood - Peripheral Venous Blood Culture - Preliminary NO GROWTH OBTAINED AFTER 24 HOURS, INCUBATION TO CONTINUE FOR 4 DAYS. 11/30/19 09:22 Blood - Peripheral Venous Blood Culture - Preliminary NO GROWTH OBTAINED AFTER 24 HOURS, INCUBATION TO CONTINUE FOR 4 DAYS. 11/30/19 07:00 Urine - Urine Clean Catch Urine Culture - Preliminary Lactose Fermenting Neg Bacilli a/p UTI-gnr- continue zosyn bladder mass bph continue zosyn f/u cultures is am Problem List - Problems (1) UTI (urinary tract infection) Code(s): N39.0 - URINARY TRACT INFECTION, SITE NOT SPECIFIED (2) Bladder mass Code(s): N32.89 - OTHER SPECIFIED DISORDERS OF BLADDER (3) BPH (benign prostatic hyperplasia) Code(s): N40.0 - BENIGN PROSTATIC HYPERPLASIA WITHOUT LOWER URINRY TRACT SYMP
--- NOTE | 2019-12-01 19:17 | PN ---
Physical Exam: SUBJECTIVE: Patient seen and examined JOANNE Says that initial complaint of urgency has resolved. Can urinate w/o difficulty. Thinks his generalized aches have improved. Denies fever OBJECTIVE: Vital Signs Period Temp Pulse Resp BP Sys/Maher Pulse Ox Last 24 Hr 99.0 F-101.8 F - 19-102 105-136/56-72 96-97 GENERAL: The patient is awake, alert, and fully oriented, in no acute distress. HEAD: NC/AT EYES: extraocular movements intact, sclera anicteric, conjunctiva clear. No ptosis. ENT: Ears normal, nares patent, oropharynx clear without exudates, moist mucous membranes. NECK: Trachea midline, full range of motion, supple. LUNGS: Breath sounds equal, clear to auscultation bilaterally, no wheezes, no crackles, no accessory muscle use. Breathing RA HEART: Regular rate and rhythm, S1, S2 without murmur, rub or gallop. ABDOMEN: Soft, nontender, nondistended, normoactive bowel sounds, no guarding, no rebound. Neg CVA EXTREMITIES: 2+ pulses, warm, well-perfused, no edema. NEUROLOGICAL: Normal speech, normal gait observed. PSYCH: Normal mood, normal affect. SKIN: Warm, dry, normal turgor, no rashes or lesions noted Laboratory Results - last 24 hr 11/30/19 11/30/19 12/01/19 21:47 22:00 06:23 WBC RBC Hgb Hct MCV MCH MCHC RDW Plt Count MPV Absolute Neuts (auto) Neutrophils % Neutrophils % (Manual) Band Neutrophils % Lymphocytes % Lymphocytes % (Manual) Monocytes % Monocytes % (Manual) Eosinophils % Eosinophils % (Manual) Basophils % Basophils % (Manual) Nucleated RBC % Platelet Estimate PT with INR INR Sodium Potassium Chloride Carbon Dioxide Anion Gap BUN Creatinine Est GFR (CKD-EPI)AfAm Est GFR (CKD-EPI)NonAf POC Glucometer 137 138 Random Glucose Hemoglobin A1c % Calcium Phosphorus Magnesium Influenza A (Rapid) Negative Influenza B (Rapid) Negative Blood Type Antibody Screen 12/01/19 12/01/19 12/01/19 08:56 08:56 08:56 WBC 20.0 H RBC 4.09 Hgb 13.3 Hct 40.0 MCV 97.9 H MCH 32.6 MCHC 33.3 RDW 13.2 Plt Count 191 MPV 7.5 Absolute Neuts (auto) 17.3 H Neutrophils % 86.6 H Neutrophils % (Manual) 80.0 Band Neutrophils % 3.0 Lymphocytes % 8.0 D Lymphocytes % (Manual) 12.0 D Monocytes % 4.9 Monocytes % (Manual) 4 Eosinophils % 0.2 D Eosinophils % (Manual) 1.0 D Basophils % 0.3 Basophils % (Manual) 0.0 Nucleated RBC % 0 Platelet Estimate Adequate PT with INR 19.20 H INR 1.62 H Sodium 137 Potassium 3.6 Chloride 104 Carbon Dioxide 26 Anion Gap 7 L BUN 22.8 H Creatinine 1.0 Est GFR (CKD-EPI)AfAm 93.73 Est GFR (CKD-EPI)NonAf 80.87 POC Glucometer Random Glucose 213 H Hemoglobin A1c % Calcium 8.6 Phosphorus 2.3 L Magnesium 2.0 Influenza A (Rapid) Influenza B (Rapid) Blood Type Antibody Screen 12/01/19 12/01/19 12/01/19 08:56 08:56 11:30 WBC RBC Hgb Hct MCV MCH MCHC RDW Plt Count MPV Absolute Neuts (auto) Neutrophils % Neutrophils % (Manual) Band Neutrophils % Lymphocytes % Lymphocytes % (Manual) Monocytes % Monocytes % (Manual) Eosinophils % Eosinophils % (Manual) Basophils % Basophils % (Manual) Nucleated RBC % Platelet Estimate PT with INR INR Sodium Potassium Chloride Carbon Dioxide Anion Gap BUN Creatinine Est GFR (CKD-EPI)AfAm Est GFR (CKD-EPI)NonAf POC Glucometer 167 Random Glucose Hemoglobin A1c % 6.8 H Calcium Phosphorus Magnesium Influenza A (Rapid) Influenza B (Rapid) Blood Type A POSITIVE Antibody Screen Negative Active Medications Generic Name Dose Route Start Last Admin Trade Name Freq PRN Reason Stop Dose Admin Acetaminophen 650 mg 11/30/19 10:16 12/01/19 13:33 Tylenol - PO 650 mg Q4H PRN Administration PAIN LEVEL 4 - 6 Aspirin 81 mg 12/01/19 10:00 12/01/19 09:52 Asa - PO 81 mg DAILY SEVERIANO Administration Atorvastatin Calcium 20 mg 11/30/19 22:00 11/30/19 21:48 Lipitor - PO 20 mg HS SEVERIANO Administration Heparin Sodium (Porcine) 5,000 unit 12/01/19 22:00 Heparin - SQ TID SEVERIANO * Lactated Ringer's 1,000 mls @ 75 mls/hr 11/30/19 10:30 12/01/19 09:52 Lactated Ringers Solution IV Not Given ASDIR SEVERIANO Piperacillin Sod/Tazobactam 50 mls @ 100 mls/hr 12/01/19 15:00 12/01/19 15:55 Sod 3.375 gm/ Dextrose IVPB 100 mls/hr Q6H-IV SEVERIANO Administration Protocol Insulin Aspart 1 vial 11/30/19 11:00 12/01/19 17:56 Novolog Vial Sliding Scale - SQ Not Given ACHS SEVERIANO Protocol Morphine Sulfate 2 mg 11/30/19 10:16 Morphine Sulfate IVPUSH Q4H PRN PAIN LEVEL 7 - 10 Ramipril 2.5 mg 11/30/19 22:00 11/30/19 21:49 Altace - PO 2.5 mg HS SEVERIANO Administration ASSESSMENT/PLAN: 59M pmh of NIDDM, HLD, HTN, GERD(EGD in 2017), Renal Stones (6-7x in past, last 10 years ago), BPH(s/p TURP), CAD (s/p 3 stents) presented after 1 day of lower abdominal pain, generalized body aches and fever measured at home to [address] spiral showing nonobstructive urinary stones(Left -3mm, Right -1mm, 2mm). Admitted for sepsis 2/2 pyelonephritis. # Sepsis 2/2 Pyelonephritis > US renal/bladder: Right renal cyst, posterior bladder mass > CT A/P: renal stones(Left -3mm, Right -1mm, 2mm), Right renal cyst(2cm), no bladder mass noted; mod prostate enlargement, fatty liver, small umbilical hernia(fat-only) > UA: 1+ protein, 2+ glucose,1+ ketones, 3+ blood, Nitrite+, 2+ LE, WBC: 226, bacteria, 4000+ > BCX: NGT > UCX: lactose-fermenting GNR - Urology([facility]) consult: --medical mgmt --outpatient cystoscopy - abx regimen(Beto): --Zosyn - pain regimen: --Morphine 2mg PRN # NIDDM > HbA1c 6.8 - ISS ACHS #HTN/HLD/CAD - c/w Ramipril, Lipitor and ASA #FEN - LR @ 75 - Na restricted/Diabetic diet #DVT. Ppx. - SCDs - SQH Visit type - Emergency Visit Emergency Visit: No - New Patient This patient is new to me today: No - Critical Care Critical Care patient: No ATTENDING PHYSICIAN STATEMENT I saw and evaluated the patient. I reviewed the resident's note and discussed the case with the resident. I agree with the resident's findings and plan as documented. SUBJECTIVE: OBJECTIVE: ASSESSMENT AND PLAN:
[2019-12-01] MEDS ORDERED: NAPH,MB-DB/K PH,MBDB POWDER PACKET PO ONE (19:30)
[2019-12-01] MEDS ORDERED: POTASSIUM CHLORIDE TABS 20 MEQ TABLET.ER (FP) PO ONE (19:30)
[2019-12-01] MEDS: HEPARIN NA (PORCINE) 5,000 UNITS/ML 1ML VIAL SQ SCH (21:53)
[2019-12-01] MEDS: RAMIPRIL 2.5 MG CAPSULE (FP) PO SCH (21:53)
[2019-12-01] MEDS: ATORVASTATIN CA 20 MG TABLET (FP) PO SCH (21:53)
[2019-12-02] MEDS ORDERED: PIPERACILLIN/TAZOBACTAM 3.375 GM VIAL IVPB ONE ×2 (02:39→10:18)
[2019-12-02] MEDS ORDERED: DEXTROSE 5%-WATER - 50 ML IVPB ONE ×2 (02:40→10:18)
[2019-12-02] MEDS: PIPERACILLIN/TAZOB 3.375 GM 3.375 GM in DEXTROSE 5%-WATER - 50 ML IVPB SCH ×2 (02:45→10:20)
[2019-12-02] MEDS: ACETAMINOPHEN 325 MG TABLET (FP) PO PRN (02:50)
[2019-12-02] MEDS: HEPARIN NA (PORCINE) 5,000 UNITS/ML 1ML VIAL SQ SCH ×3 (06:28→21:51)
[2019-12-02] MEDS: INSULIN SLIDING SCALE (NOVOLOG) 1 VIAL SQ SCH ×4 (06:28→21:51)
[2019-12-02 08:09] LABS: HEMATOCRIT 37.4 % (35.4-49); HEMOGLOBIN 12.7 GM/dL (11.7-16.9); MCHC 33.9 g/dl (32.0-35.9); MEAN CELL VOLUME 97.3 fl (80-96); MEAN PLT VOLUME 7.3 fl (7.5-11.1); PLATELET COUNT 164 K/MM3 (134-434); RBC 3.85 M/mm3 (4.00-5.60); RDW 13.1 % (11.9-15.9); WHITE BLOOD COUNT 12.6 K/mm3 (4.0-10.0)
[2019-12-02 08:40] LABS: CALCIUM 8.6 mg/dL (8.5-10.1); MAGNESIUM 2.1 mg/dL (1.8-2.4); POTASSIUM 3.9 mmol/L (3.5-5.1)
[2019-12-02] MEDS: ASPIRIN 81 MG CHEWABLE TABLETS PO SCH (10:21)
[2019-12-02] MEDS: LACTATED RINGERS SOLUTION 1,000 ML IV SCH (12:17)
[2019-12-02] MEDS ORDERED: ACETAMINOPHEN 325 MG TABLET (FP) PO PRN (14:03)
[2019-12-02] MEDS ORDERED: CEFTRIAXONE 1,000 MG in DEXTROSE 5%-WATER - 50 ML IVPB ONE (14:12)
--- NOTE | 2019-12-02 14:12 | PN ---
Physical Exam: SUBJECTIVE: Patient seen and examined O/N: endorse OBJECTIVE: Vital Signs Period Temp Pulse Resp BP Sys/Maher Pulse Ox Last 24 Hr 98.1 F-101.8 F 20-91 20-101 129-136/67-83 96 GENERAL: The patient is awake, alert, and fully oriented, in no acute distress. HEAD: NC/AT EYES: extraocular movements intact, sclera anicteric, conjunctiva clear. No ptosis. ENT: Ears normal, nares patent, oropharynx clear without exudates, moist mucous membranes. NECK: Trachea midline, full range of motion, supple. LUNGS: Breath sounds equal, clear to auscultation bilaterally, no wheezes, no crackles, no accessory muscle use. Breathing RA HEART: Regular rate and rhythm, S1, S2 without murmur, rub or gallop. ABDOMEN: Soft, nontender, nondistended, normoactive bowel sounds, no guarding, no rebound. Neg CVA EXTREMITIES: 2+ pulses, warm, well-perfused, no edema. NEUROLOGICAL: Normal speech, normal gait observed. PSYCH: Normal mood, normal affect. SKIN: Warm, dry, normal turgor, no rashes or lesions noted Laboratory Results - last 24 hr 12/02/19 12/02/19 12/02/19 07:45 07:45 11:59 WBC 12.6 H RBC 3.85 L Hgb 12.7 Hct 37.4 MCV 97.3 H MCH 33.0 MCHC 33.9 RDW 13.1 Plt Count 164 MPV 7.3 L Sodium 138 Potassium 3.9 Chloride 107 Carbon Dioxide 24 Anion Gap 7 L BUN 21.0 H Creatinine 1.0 Est GFR (CKD-EPI)AfAm 93.73 Est GFR (CKD-EPI)NonAf 80.87 POC Glucometer 119 Random Glucose 120 H Calcium 8.6 Phosphorus 3.0 Magnesium 2.1 Active Medications Generic Name Dose Route Start Last Admin Trade Name Freq PRN Reason Stop Dose Admin Acetaminophen 650 mg 12/02/19 14:03 Tylenol - PO Q4H PRN PAIN LEVEL 7 - 10 Aspirin 81 mg 12/01/19 10:00 12/02/19 10:21 Asa - PO 81 mg DAILY SEVERIANO Administration Atorvastatin Calcium 20 mg 11/30/19 22:00 12/01/19 21:53 Lipitor - PO 20 mg HS SEVERIANO Administration Heparin Sodium (Porcine) 5,000 unit 12/01/19 22:00 12/02/19 06:28 Heparin - SQ 5,000 unit TID SEVERIANO Administration Lactated Ringer's 1,000 mls @ 75 mls/hr 11/30/19 10:30 12/02/19 12:17 Lactated Ringers Solution IV Not Given ASDIR SEVERIANO Piperacillin Sod/Tazobactam 50 mls @ 100 mls/hr 12/01/19 15:00 12/02/19 10:20 Sod 3.375 gm/ Dextrose IVPB 100 mls/hr Q6H-IV SEVERIANO Administration Protocol Insulin Aspart 1 vial 11/30/19 11:00 12/02/19 12:01 Novolog Vial Sliding Scale - SQ Not Given ACHS SEVERIANO Protocol Ramipril 2.5 mg 11/30/19 22:00 12/01/19 21:53 Altace - PO 2.5 mg HS SEVERIANO Administration ASSESSMENT/PLAN: 59M pmh of NIDDM, HLD, HTN, GERD(EGD in 2017), Renal Stones (6-7x in past, last 10 years ago), BPH(s/p TURP), CAD (s/p 3 stents) presented after 1 day of lower abdominal pain, generalized body aches and fever measured at home to [address] spiral showing nonobstructive urinary stones(Left -3mm, Right -1mm, 2mm). Admitted for sepsis 2/2 pyelonephritis. # Sepsis 2/2 Pyelonephritis > US renal/bladder: Right renal cyst, posterior bladder mass > CT A/P: renal stones(Left -3mm, Right -1mm, 2mm), Right renal cyst(2cm), no bladder mass noted; mod prostate enlargement, fatty liver, small umbilical hernia(fat-only) > UA: 1+ protein, 2+ glucose,1+ ketones, 3+ blood, Nitrite+, 2+ LE, WBC: 226, bacteria, 4000+ > BCX: NGT > UCX: Klebsiella w/ - Urology([facility]) consult: --medical mgmt --outpatient cystoscopy - abx regimen([facility]): --Zosyn --> Ceftriaxone - pain regimen: --acetaminophen PRN # NIDDM > HbA1c 6.8 - ISS ACHS #HTN/HLD/CAD - c/w Ramipril, Lipitor and ASA #FEN - LR @ 75 - Na restricted/Diabetic diet #DVT. Ppx. - SCDs - SQH Visit type - Emergency Visit Emergency Visit: No - New Patient This patient is new to me today: No - Critical Care Critical Care patient: No ATTENDING PHYSICIAN STATEMENT I saw and evaluated the patient. I reviewed the resident's note and discussed the case with the resident. I agree with the resident's findings and plan as documented. SUBJECTIVE: OBJECTIVE: ASSESSMENT AND PLAN:
--- NOTE | 2019-12-02 14:16 | PN ---
Progress Note (short form) - Note Progress Note: still some discomfort urinating still some fevers trending down Vital Signs Period Temp Pulse Resp BP Sys/Maher Pulse Ox Last 24 Hr 98.1 F-101.8 F 20- 20-101 129-136/67-83 96 cor-rrr lungs decreased bs at bases abd soft,nt no cvat ext no edema CBC, BMP 12/02/19 07:45 12/02/19 07:45 Microbiology 11/30/19 07:00 Urine - Urine Clean Catch Urine Culture - Final Klebsiella Pneumoniae 11/30/19 09:04 Blood - Peripheral Venous Blood Culture - Preliminary NO GROWTH OBTAINED AFTER 48 HOURS, INCUBATION TO CONTINUE FOR 3 DAYS. 11/30/19 09:22 Blood - Peripheral Venous Blood Culture - Preliminary NO GROWTH OBTAINED AFTER 48 HOURS, INCUBATION TO CONTINUE FOR 3 DAYS. a/p klebsiella UTI- switch to rocephin bladder mass bph d/w resident Problem List - Problems (1) UTI (urinary tract infection) Code(s): N39.0 - URINARY TRACT INFECTION, SITE NOT SPECIFIED (2) Bladder mass Code(s): N32.89 - OTHER SPECIFIED DISORDERS OF BLADDER (3) BPH (benign prostatic hyperplasia) Code(s): N40.0 - BENIGN PROSTATIC HYPERPLASIA WITHOUT LOWER URINRY TRACT SYMP
[2019-12-02] MEDS ORDERED: DEXTROSE 5%-WATER 100 ML IVPB ONE (14:25)
[2019-12-02] MEDS ORDERED: POTASSIUM CHLORIDE TABS 10 MEQ TABLET.ER (FP) PO ONE (14:30)
[2019-12-02] MEDS: CEFTRIAXONE 2 GM in DEXTROSE 5%-WATER 100 ML IVPB SCH (14:31)
--- NOTE | 2019-12-02 15:51 | PN ---
Teaching Attending Note Name of Resident: Sanjeev Harkins ATTENDING PHYSICIAN STATEMENT I saw and evaluated the patient. I reviewed the resident's note and discussed the case with the resident. I agree with the resident's findings and plan as documented. SUBJECTIVE: cont to have fevers. lower abdominal discomfort no N/V. feels better other ovalle OBJECTIVE: NAD , awake, comfortable in bed MMM. CV: RRR, no MRG Lungs: CTAB Abd: soft, ND, TTP in suprapubic area and LLQ, and RLQ. Nl BD Ext: No edema or erythema on LE ASSESSMENT AND PLAN: 59 y/o man with h/o DM , HLP, HTN, GERD, nephrolithiasis, CAD s/p stents, who presented with abd pain, fever and dysuria and was found to have sepsis due to UTI 1- Sepsis due to complicated UTI/Pyelonephritis. improved - Urine cx with Klebsiella sensitive to ceftriaxone - although he cont to have fever, he feels better, and leukocytosis improved . - will monitor. if contt o have fever by tomorrow, then we need to r/o renal abscess - follow final blood cx 2- Urinary bladder mass like density on US: seen by uro and Cystoscopy is planned as out pt 3- R renal cyst : out pt f/u 4- h/o Dm : SSI here . hold metformin . 5- h/o HTN: cont Ramipril. monitor closely 6- Fullness in posterior rectal wall, f/u with GI for colonoscopy DVT PX: cont SCDs, and heparin SQ
[2019-12-02] MEDS ORDERED: INSULIN (NOVOLOG) ASPART 100 UNITS/ML 10ML VIAL ONE (21:23)
[2019-12-02] MEDS: RAMIPRIL 2.5 MG CAPSULE (FP) PO SCH (21:51)
[2019-12-02] MEDS: ATORVASTATIN CA 20 MG TABLET (FP) PO SCH (21:51)
[2019-12-03] MEDS: HEPARIN NA (PORCINE) 5,000 UNITS/ML 1ML VIAL SQ SCH ×3 (06:24→22:02)
[2019-12-03] MEDS: INSULIN SLIDING SCALE (NOVOLOG) 1 VIAL SQ SCH ×4 (06:24→22:12)
[2019-12-03 09:14] LABS: HEMATOCRIT 41.4 % (35.4-49); HEMOGLOBIN 14.1 GM/dL (11.7-16.9); MCH 33.5 pg (25.7-33.7); MCHC 34.2 g/dl (32.0-35.9); MEAN PLT VOLUME 7.5 fl (7.5-11.1); PLATELET COUNT 196 K/MM3 (134-434); RBC 4.22 M/mm3 (4.00-5.60); RDW 13.3 % (11.9-15.9); WHITE BLOOD COUNT 8.6 K/mm3 (4.0-10.0)
[2019-12-03] MEDS ORDERED: DEXTROSE 5%-WATER 100 ML IVPB ONE (09:23)
[2019-12-03] MEDS: CEFTRIAXONE 2 GM in DEXTROSE 5%-WATER 100 ML IVPB SCH (09:25)
[2019-12-03] MEDS: ASPIRIN 81 MG CHEWABLE TABLETS PO SCH (09:26)
[2019-12-03 09:35] LABS: BLOOD UREA NITROGEN 19.5 mg/dL (7-18); CALCIUM 8.6 mg/dL (8.5-10.1); CREATININE 0.8 mg/dL (0.55-1.3); MAGNESIUM 2.2 mg/dL (1.8-2.4)
[2019-12-03] MEDS: LACTATED RINGERS SOLUTION 1,000 ML IV SCH (11:38)
--- NOTE | 2019-12-03 15:01 | PN ---
Progress Note (short form) - Note Progress Note: still with difficulty with urinary flow temps trending down Vital Signs Period Temp Pulse Resp BP Sys/Maher Pulse Ox Last 24 Hr 99.0 F-99.1 F 71-82 18-19 103-133/51-74 95-96 cor-rrr lungs clear abd soft,nt ext no edema mild suprapubic discomfort to palpation CBC, BMP 12/03/19 07:34 12/03/19 07:34 Microbiology 11/30/19 09:04 Blood - Peripheral Venous Blood Culture - Preliminary NO GROWTH OBTAINED AFTER 72 HOURS, INCUBATION TO CONTINUE FOR 2 DAYS. 11/30/19 09:22 Blood - Peripheral Venous Blood Culture - Preliminary NO GROWTH OBTAINED AFTER 72 HOURS, INCUBATION TO CONTINUE FOR 2 DAYS. 11/30/19 07:00 Urine - Urine Clean Catch Urine Culture - Final Klebsiella Pneumoniae a/p still some lowgrade temps- would continue iv antibiotics until afebrile klebsiella UTI- continue rocephin, po bactrim when ready for discharge-day #3 antibiotics- would complet total 14 days bladder mass bph-consider adding flomax?, would defer to urology but he is still having difficulty urinating Problem List - Problems (1) UTI (urinary tract infection) Code(s): N39.0 - URINARY TRACT INFECTION, SITE NOT SPECIFIED (2) Bladder mass Code(s): N32.89 - OTHER SPECIFIED DISORDERS OF BLADDER (3) BPH (benign prostatic hyperplasia) Code(s): N40.0 - BENIGN PROSTATIC HYPERPLASIA WITHOUT LOWER URINRY TRACT SYMP
--- NOTE | 2019-12-03 17:47 | PN ---
Physical Exam: SUBJECTIVE: Patient seen and examined O/N: complaining of frequent urinations(>15x) Endorses regular stream, no dribbling, no trouble starting void. Denies fever, chills OBJECTIVE: Vital Signs Period Temp Pulse Resp BP Sys/Maher Pulse Ox Last 24 Hr 99.0 F-99.1 F 71-82 18-19 103-133/51-74 95-96 GENERAL: The patient is awake, alert, and fully oriented, in no acute distress. HEAD: NC/AT EYES: extraocular movements intact, sclera anicteric, conjunctiva clear. No ptosis. ENT: Ears normal, nares patent, oropharynx clear without exudates, moist mucous membranes. NECK: Trachea midline, full range of motion, supple. LUNGS: Breath sounds equal, clear to auscultation bilaterally, no wheezes, no crackles, no accessory muscle use. Breathing RA HEART: Regular rate and rhythm, S1, S2 without murmur, rub or gallop. ABDOMEN: Soft, nontender, nondistended, normoactive bowel sounds, no guarding, no rebound. Neg CVA EXTREMITIES: 2+ pulses, warm, well-perfused, no edema. NEUROLOGICAL: Normal speech, normal gait observed. PSYCH: Normal mood, normal affect. SKIN: Warm, dry, normal turgor, no rashes or lesions noted Laboratory Results - last 24 hr 12/03/19 12/03/19 12/03/19 07:34 07:34 11:36 WBC 8.6 RBC 4.22 Hgb 14.1 Hct 41.4 MCV 98.0 H MCH 33.5 MCHC 34.2 RDW 13.3 Plt Count 196 MPV 7.5 Sodium 136 Potassium 4.0 Chloride 104 Carbon Dioxide 23 Anion Gap 9 BUN 19.5 H Creatinine 0.8 Est GFR (CKD-EPI)AfAm 111.74 Est GFR (CKD-EPI)NonAf 96.41 POC Glucometer 136 Random Glucose 108 H Calcium 8.6 Magnesium 2.2 Active Medications Generic Name Dose Route Start Last Admin Trade Name Freq PRN Reason Stop Dose Admin Acetaminophen 650 mg 12/02/19 14:03 Tylenol - PO Q4H PRN PAIN LEVEL 7 - 10 Aspirin 81 mg 12/01/19 10:00 12/03/19 09:26 Asa - PO 81 mg DAILY SEVERIANO Administration Atorvastatin Calcium 20 mg 11/30/19 22:00 12/02/19 21:51 Lipitor - PO 20 mg HS SEVERIANO Administration Heparin Sodium (Porcine) 5,000 unit 12/01/19 22:00 12/03/19 13:21 Heparin - SQ 5,000 unit TID SEVERIANO Administration Lactated Ringer's 1,000 mls @ 75 mls/hr 11/30/19 10:30 12/03/19 11:38 Lactated Ringers Solution IV Not Given ASDIR SEVERIANO Ceftriaxone Sodium 2 gm/ 100 mls @ 200 mls/hr 12/02/19 14:15 12/03/19 09:25 Dextrose IVPB 200 mls/hr DAILY SEVERIANO Administration Protocol Insulin Aspart 1 vial 11/30/19 11:00 12/03/19 17:25 Novolog Vial Sliding Scale - SQ Not Given ACHS [facility] Protocol Ramipril 2.5 mg 11/30/19 22:00 12/02/19 21:51 Altace - PO 2.5 mg HS SEVERIANO Administration ASSESSMENT/PLAN: 59M pmh of NIDDM, HLD, HTN, GERD(EGD in 2017), Renal Stones (6-7x in past, last 10 years ago), BPH(s/p TURP), CAD (s/p 3 stents) presented after 1 day of lower abdominal pain, generalized body aches and fever measured at home to [address] spiral showing nonobstructive urinary stones(Left -3mm, Right -1mm, 2mm). Admitted for sepsis 2/2 pyelonephritis. Having frequent voids, unsure if BPH vs overactive bladder. # Sepsis 2/2 Pyelonephritis > US renal/bladder: Right renal cyst, posterior bladder mass > CT A/P: renal stones(Left -3mm, Right -1mm, 2mm), Right renal cyst(2cm), no bladder mass noted; mod prostate enlargement, fatty liver, small umbilical hernia(fat-only) > UA: 1+ protein, 2+ glucose,1+ ketones, 3+ blood, Nitrite+, 2+ LE, WBC: 226, bacteria, 4000+ > BCX: NGT > UCX: Klebsiella(intermittent resistance to Ampicillin) - Urology([facility]) consult: --medical mgmt --outpatient cystoscopy - abx regimen([facility] [place]): --Zosyn --> Ceftriaxone - pain regimen: --acetaminophen PRN # NIDDM > HbA1c 6.8 - ISS ACHS #HTN/HLD/CAD - c/w Ramipril, Lipitor and ASA #FEN - LR @ 75 - Na restricted/Diabetic diet #DVT. Ppx. - SCDs - SQH Visit type - Emergency Visit Emergency Visit: No - New Patient This patient is new to me today: No - Critical Care Critical Care patient: No ATTENDING PHYSICIAN STATEMENT I saw and evaluated the patient. I reviewed the resident's note and discussed the case with the resident. I agree with the resident's findings and plan as documented. SUBJECTIVE: OBJECTIVE: ASSESSMENT AND PLAN:
--- NOTE | 2019-12-03 19:16 | PN ---
Teaching Attending Note Name of Resident: Sanjeev Harkins ATTENDING PHYSICIAN STATEMENT I saw and evaluated the patient. I reviewed the resident's note and discussed the case with the resident. I agree with the resident's findings and plan as documented. SUBJECTIVE: No fever or chills. lower abdominal discomfort. no N/V . no fever today. OBJECTIVE: NAD, awake, comfortable in bed. MMM. CV: RRR, no MRG Lungs: CTAB Abd: soft, ND, TTP in suprapubic area and LLQ, and RLQ. Nl BS Ext: No edema or erythema on LE. ASSESSMENT AND PLAN: 59 y/o man with h/o DM , HLP, HTN, GERD, nephrolithiasis, CAD s/p stents, who presented with abd pain, fever and dysuria and was found to have sepsis due to UTI 1- Sepsis due to complicated UTI/Pyelonephritis. improved - possible change to po tomorrow - blood cx neg x 72 hrs 2- Urinary bladder mass like density on US: seen by uro and Cystoscopy is planned as out pt BPH : add flomax. f/u wit uro 3- R renal cyst: out pt f/u 4- h/o Dm : SSI here . hold metformin . 5- h/o HTN: cont Ramipril. y 6- Fullness in posterior rectal wall, f/u with GI for colonoscopy DVT PX: cont SCDs, and heparin SQ
[2019-12-03] MEDS: RAMIPRIL 2.5 MG CAPSULE (FP) PO SCH (22:03)
[2019-12-03] MEDS: ATORVASTATIN CA 20 MG TABLET (FP) PO SCH (22:04)
[2019-12-04] MEDS: INSULIN SLIDING SCALE (NOVOLOG) 1 VIAL SQ SCH ×2 (06:09→11:29)
[2019-12-04] MEDS: HEPARIN NA (PORCINE) 5,000 UNITS/ML 1ML VIAL SQ SCH (06:09)
[2019-12-04] MEDS ORDERED: TAMSULOSIN HCL 0.4 MG CAP PO SCH (08:30)
[2019-12-04] MEDS ORDERED: DEXTROSE 5%-WATER 100 ML IVPB ONE (09:05)
[2019-12-04] MEDS: CEFTRIAXONE 2 GM in DEXTROSE 5%-WATER 100 ML IVPB SCH (09:09)
[2019-12-04] MEDS: ASPIRIN 81 MG CHEWABLE TABLETS PO SCH (09:10)
[2019-12-04] MEDS: LACTATED RINGERS SOLUTION 1,000 ML IV SCH (11:29)
[2019-12-04 11:51] LABS: HEMATOCRIT 43.7 % (35.4-49); HEMOGLOBIN 14.9 GM/dL (11.7-16.9); MCH 33.1 pg (25.7-33.7); MCHC 34.2 g/dl (32.0-35.9); MEAN CELL VOLUME 96.9 fl (80-96); MEAN PLT VOLUME 7.5 fl (7.5-11.1); PLATELET COUNT 214 K/MM3 (134-434); RBC 4.51 M/mm3 (4.00-5.60); RDW 13.1 % (11.9-15.9); WHITE BLOOD COUNT 8.1 K/mm3 (4.0-10.0)
[2019-12-04 12:19] LABS: BLOOD UREA NITROGEN 24.2 mg/dL (7-18); CALCIUM 9.2 mg/dL (8.5-10.1); CREATININE 0.8 mg/dL (0.55-1.3); MAGNESIUM 2.2 mg/dL (1.8-2.4); PHOSPHOROUS 3.6 mg/dL (2.5-4.9); POTASSIUM 3.9 mmol/L (3.5-5.1)
--- NOTE | 2019-12-04 12:56 | PN ---
Teaching Attending Note Name of Resident: Sanjeev Harkins ATTENDING PHYSICIAN STATEMENT I saw and evaluated the patient. I reviewed the resident's note and discussed the case with the resident. I agree with the resident's findings and plan as documented. SUBJECTIVE: no fever or chills. no abd pain . has difficulty with urination . no N/V. no flank pain . no SOB . saw blood wiping himslef after a BM ( constipated ) OBJECTIVE: NAD, awake, comfortable in bed. MMM. CV: RRR, no MRG Lungs: CTAB Abd: soft, ND, TTP in suprapubic area and LLQ, and RLQ. Nl BS. Ext: No edema or erythema on LE. ASSESSMENT AND PLAN: 59 y/o man with h/o DM , HLP, HTN, GERD, nephrolithiasis, CAD s/p stents, who presented with abd pain, fever and dysuria and was found to have sepsis due to UTI 1- Sepsis due to complicated UTI/Pyelonephritis.sepsis resolved - change to bactrim DS BID x 10 more days -blood cx neg x 96 hr 2- Urinary bladder mass like density on US: seen by uro and Cystoscopy is planned as out pt cont flomax fro enlarged prostate. eh understands he needs work up for his prostate blood work and possibly bx 3- R renal cyst: out pt f/u 4- h/o Dm : resume metformin at dc 5- h/o HTN: cont Ramipril. 6- Fullness in posterior rectal wall, f/u with GI for colonoscopy . he reproted blood while wiping himself today . has h/o constipation and h/o hermorrhoids. he was advised to follow up with GI for colonoscopy dc home today ASSESSMENT AND PLAN:
--- NOTE | 2019-12-04 14:42 | DS ---
Physical Exam: SUBJECTIVE: Patient seen and examined OBJECTIVE: Vital Signs Period Temp Pulse Resp BP Sys/Maher Pulse Ox Last 24 Hr 98.0 F-99.0 F 75-90 18-19 120-146/74-95 95-95 PHYSICAL EXAM GENERAL: The patient is awake, alert, and fully oriented, in no acute distress. HEAD: NC/AT EYES: extraocular movements intact, sclera anicteric, conjunctiva clear. No ptosis. ENT: Ears normal, nares patent, oropharynx clear without exudates, moist mucous membranes. NECK: Trachea midline, full range of motion, supple. LUNGS: Breath sounds equal, clear to auscultation bilaterally, no wheezes, no crackles, no accessory muscle use. Breathing RA HEART: Regular rate and rhythm, S1, S2 without murmur, rub or gallop. ABDOMEN: Soft, nontender, nondistended, normoactive bowel sounds, no guarding, no rebound. Neg CVA EXTREMITIES: 2+ pulses, warm, well-perfused, no edema. NEUROLOGICAL: Normal speech, normal gait observed. PSYCH: Normal mood, normal affect. SKIN: Warm, dry, normal turgor, no rashes or lesions noted LABS Laboratory Results - last 24 hr 12/04/19 12/04/19 12/04/19 06:00 11:06 11:06 WBC 8.1 RBC 4.51 Hgb 14.9 Hct 43.7 MCV 96.9 H MCH 33.1 MCHC 34.2 RDW 13.1 Plt Count 214 MPV 7.5 Sodium 136 Potassium 3.9 Chloride 102 Carbon Dioxide 26 Anion Gap 8 BUN 24.2 H Creatinine 0.8 Est GFR (CKD-EPI)AfAm 111.74 Est GFR (CKD-EPI)NonAf 96.41 POC Glucometer 115 Random Glucose 175 H Calcium 9.2 Phosphorus 3.6 Magnesium 2.2 HOSPITAL COURSE: Date of Admission:11/30/19 Date of Discharge: 12/04/19 59M pmh of NIDDM, HLD, HTN, GERD(EGD in 2017), Renal Stones (6-7x in past, last 10 years ago), BPH(s/p TURP), CAD (s/p 3 stents) presented after 1 day of lower abdominal pain, generalized body aches and fever measured at home to [address] spiral showing nonobstructive urinary stones(Left -3mm, Right -1mm, 2mm). Urology([place]) consulted rec outpatient cystoscopy. Admitted for sepsis 2/2 pyelonephritis. Having frequent voids, unsure if BPH vs overactive bladder. Started Tamsulosin(Flomax) inpatient. UCX growing Klebsiella( intermediate resistance to Ampicillin). Zosyn changed to ceftriaxone then bactrim(x10d for home). Stable for discharge home. Minutes to complete discharge: 31 Discharge Summary Problems reviewed: Yes Reason For Visit: ACUTE PYELONEPHRITIS,SYMPTOMS OF UTI Current Active Problems BPH (benign prostatic hyperplasia) (Acute) Bladder mass (Acute) Pyelonephritis, acute (Acute) UTI (urinary tract infection) (Acute) UTI symptoms (Acute) Condition: Stable - Instructions Diet, Activity, Other Instructions: You were evaluated in the hospital for generalized aches, fever. Labwork showed that you had a urinary infection. Imaging showed that you had multiple small kidney stones. A urologist evaluated you. There were no signs of urinary obstruction. You received intravenous antibiotics. Your symptoms improved. MEDICATIONS: - Trimethoprim-Sulfamethoxazole 160/800[BACTRIM DS]; take 1 tablet, twice a day for 10 days. start 12/05/19 - Tamsulosin HCl[FLOMAX] 0.4mg, daily - resume other home medications Additional Instructions: - stay hydrated, drink up to 8 glasses a day Please follow-up with the Physicians below: - Primary Care Physician: to discuss your recent hospitalization - Urologist([facility]): to discuss your enlarged prostate, and schedule a cystoscopy. also to follow up on R renal cyst - Director Education(Matthew): to discuss your fatty liver, possible need for colonoscopy due to fullness in your rectum, and possible hemorrhoids. Please seek immediate medical care if you experience: - fever, chills, nausea, vomiting - severe, worsening flank pain - blood in your urine - severe confusion Referrals: Julio Saavedra MD [Primary Care Provider] - Nick Blair MD [Staff Physician] - Robb Castro MD [Staff Physician] - Disposition: HOME - Home Medications Comprehensive Discharge Medication List: Ambulatory Orders Ascorbic Acid [Vitamin C] 250 mg PO DAILY 05/15/17 Aspirin [ASA -] 81 mg PO DAILY 05/15/17 Cholecalciferol (Vitamin D3) [Vitamin D -] 400 unit PO DAILY 05/15/17 Multivit-Min/FA/Lycopen/Lutein [Centrum Silver Men Tablet] 1 each PO DAILY 05/15 Ramipril 2.5 mg PO HS 05/15/17 Vitamin B Complex 1 tab PO DAILY 05/15/17 Vitamin E 1 tab PO ASDIR 05/15/17 Zinc 50 mg PO MOTUWETHFR 05/15/17 Atorvastatin Ca [Lipitor] 20 mg PO HS 11/01/19 metFORMIN HCL [Metformin HCl] 500 mg PO BID 11/30/19 Sulfamethoxazole/Trimethoprim [Bactrim Ds -] 1 tab PO BID 10 Days #20 tablet 06/15 Tamsulosin HCl [Flomax -] 0.4 mg PO DAILY@0830 #30 cap.er.24h 12/04/19 This patient is new to me today: No Emergency Visit: No Critical Care patient: No - Discharge Referral Referred to [facility] No ATTENDING PHYSICIAN STATEMENT I saw and evaluated the patient. I reviewed the resident's note and discussed the case with the resident. I agree with the resident's findings and plan as documented. SUBJECTIVE: OBJECTIVE: ASSESSMENT AND PLAN:
[2019-12-04 14:53] VITALS: BP 127/63; PULSE 98; TEMP 98.5
== END 2019-12-04 15:46 | disposition home or self-care (01) | DRG 720 ==
LOC: JER 06:32 → JERBED 08:54 → J6S 16:19
PROVIDERS: ADMIT Internal Medicine; ATTEND Internal Medicine
DX: A41.50 Gram-negative sepsis, unspecified (principal); N39.0 Urinary tract infection, site not specified; N32.89 Other specified disorders of bladder; E11.9 Type 2 diabetes mellitus without complications; I10 Essential (primary) hypertension; I25.10 Atherosclerotic heart disease of native coronary artery without angina pectoris; E78.5 Hyperlipidemia, unspecified; N10 Acute pyelonephritis; B96.1 Klebsiella pneumoniae [K. pneumoniae] as the cause of diseases classified elsewhere; R31.9 Hematuria, unspecified; N20.0 Calculus of kidney; N28.1 Cyst of kidney, acquired; N40.1 Benign prostatic hyperplasia with lower urinary tract symptoms; I95.9 Hypotension, unspecified; K76.0 Fatty (change of) liver, not elsewhere classified; K21.9 Gastro-esophageal reflux disease without esophagitis; D72.829 Elevated white blood cell count, unspecified; E78.00 Pure hypercholesterolemia, unspecified; Z87.891 Personal history of nicotine dependence; Z87.442 Personal history of urinary calculi
CPT/HCPCS: 36415; 74176-TC; 76775-TC; 76856-TC; 80048; 80053; 81003; 82962; 83036; 83605; 83735; 84100; 85025; 85027; 85610; 86850; 86900; 86901; 87040; 87086; 87186; 87804; 99283-25; J1644; J7030

== ENCOUNTER 2020-04-18 07:57 | Day surgery (SDC) | payer OTHER ==
[2020-04-18 08:29] VITALS: BMI 29.8
[2020-04-18] MEDS ORDERED: LIDOCAINE HCL 2% JELLY 10 ML CARTRIDGE ONE (08:54)
[2020-04-18 09:22] VITALS: TEMP 99
[2020-04-18 10:28] VITALS: BP 102/65; PULSE 84
== END 2020-04-18 10:23 | disposition home or self-care (01) ==
LOC: JASU-ENDO 07:57
PROVIDERS: ATTEND Internal Medicine Gastroenterology
PROC: 06LY4CC Occlusion of Hemorrhoidal Plexus with Extraluminal Device, Percutaneous Endoscopic Approach (ICD-10-PCS; principal; 2020-04-18 09:00)
DX: K64.8 Other hemorrhoids (principal); Z88.1 Allergy status to other antibiotic agents; Z88.8 Allergy status to other drugs, medicaments and biological substances; Z91.013 Allergy to seafood

== ENCOUNTER 2022-11-07 04:14 | Day surgery (SDC) | payer OTHER ==
[2022-11-04 14:35] VITALS: BMI 31.6
[2022-11-07] MEDS ORDERED: PROPOFOL 40 ML ONE (11:42)
[2022-11-07] MEDS ORDERED: MIDAZOLAM HCL 2 MG/2 ML SINGLE DOSE VIAL ONE (11:43)
[2022-11-07] MEDS ORDERED: SUCCINYLCHOLINE CHLORIDE 200 MG/10 ML SYRINGE ONE (11:43)
[2022-11-07] MEDS ORDERED: CEFTRIAXONE 1 GM in DEXTROSE 5%-WATER - 50 ML IVPB ONE (14:15)
[2022-11-07] MEDS ORDERED: CEFTRIAXONE 1 GM/50 ML PREMIX IVPB ONE (14:27)
[2022-11-07] MEDS ORDERED: ONDANSETRON 4 MG/2 ML VIAL IVPUSH PRN ×2 (14:51→15:14)
[2022-11-07] MEDS ORDERED: PROMETHAZINE HCL 25 MG/1 ML VIAL IVPUSH PRN (14:51)
[2022-11-07] MEDS ORDERED: LACTATED RINGERS SOLUTION 1,000 ML IV SCH (15:00)
[2022-11-07] MEDS ORDERED: oxyCODONE HCL 5 MG TABLET PO PRN ×2 (15:04→15:14)
[2022-11-07] MEDS ORDERED: DEXTROSE 5%-0.45% SALINE 1,000 ML IV SCH (15:15)
[2022-11-07 17:55] VITALS: RESP 18
[2022-11-07 18:25] VITALS: BP 138/81; PULSE 69; TEMP 97.9
== END 2022-11-07 19:38 | disposition home or self-care (01) ==
LOC: JASU-SURG 04:14
PROVIDERS: ATTEND Urology
PROC: 0VT08ZZ Resection of Prostate, Via Natural or Artificial Opening Endoscopic (ICD-10-PCS; principal; 2022-11-07 11:30)
DX: N40.1 Benign prostatic hyperplasia with lower urinary tract symptoms (principal); N39.0 Urinary tract infection, site not specified
CPT/HCPCS: 82962; 88305-TC; 88342-TC; 94760

== ENCOUNTER 2022-12-20 06:13 | Day surgery (SDC) | payer OTHER ==
[2022-12-20 07:00] VITALS: BMI 30.9
[2022-12-20] MEDS ORDERED: LIDOCAINE HCL 1%, 10 MG/ML (20ML VIAL) ONE (07:10)
[2022-12-20] MEDS ORDERED: MIDAZOLAM HCL 2 MG/2 ML SINGLE DOSE VIAL ONE (07:24)
[2022-12-20] MEDS ORDERED: PROPOFOL 20 ML ONE ×2 (07:24→07:35)
[2022-12-20] MEDS ORDERED: GLYCOPYRROLATE 0.2 MG/1 ML VIAL ONE (07:25)
[2022-12-20] MEDS ORDERED: ceFAZolin SODIUM 1 GM VIAL ONE (07:25)
[2022-12-20] MEDS ORDERED: LIDOCAINE HCL/PF 2% SDV 5ML VIAL ONE (07:25)
[2022-12-20] MEDS ORDERED: SODIUM CHLORIDE 0.9% P/F 10 ML VIAL IJ ONE (07:25)
[2022-12-20] MEDS ORDERED: KETOROLAC TROMETHAMINE 30 MG/1 ML VIAL ONE (07:48)
[2022-12-20] MEDS ORDERED: ONDANSETRON 4 MG/2 ML VIAL ONE (07:48)
[2022-12-20] MEDS ORDERED: PROMETHAZINE HCL 25 MG/1 ML VIAL IVPB PRN (08:20)
[2022-12-20] MEDS ORDERED: ONDANSETRON 4 MG/2 ML VIAL IVPUSH PRN (08:20)
[2022-12-20] MEDS ORDERED: oxyCODONE HCL 5 MG TABLET PO PRN (08:20)
[2022-12-20] MEDS ORDERED: LACTATED RINGERS SOLUTION 1,000 ML IV SCH (08:30)
[2022-12-20 09:06] VITALS: PULSE 62; RESP 18; TEMP 96
[2022-12-20 09:19] VITALS: BP 112/64
== END 2022-12-20 09:33 | disposition home or self-care (01) ==
LOC: FASU 06:13
PROVIDERS: ATTEND Orthopaedic Surgery
PROC: 01N50ZZ Release Median Nerve, Open Approach (ICD-10-PCS; principal; 2022-12-20 07:46)
DX: G56.01 Carpal tunnel syndrome, right upper limb (principal)
CPT/HCPCS: 82962; 94760

== ENCOUNTER 2024-01-14 06:35 | Day surgery (SDC) | payer OTHER ==
[2024-01-12 08:36] VITALS: BMI 30.7
[2024-01-14] MEDS ORDERED: LIDOCAINE HCL 2% (20ML MULTI-DOSE VIAL) ONE (07:25)
[2024-01-14] MEDS ORDERED: ONDANSETRON 4 MG/2 ML VIAL IVPUSH PRN (07:43)
[2024-01-14] MEDS ORDERED: oxyCODONE HCL 5 MG TABLET PO PRN (07:43)
[2024-01-14] MEDS ORDERED: ACETAMINOPHEN 325 MG TABLET (FP) PO PRN (07:43)
[2024-01-14] MEDS ORDERED: LACTATED RINGERS SOLUTION 1,000 ML IV SCH (07:45)
[2024-01-14] MEDS ORDERED: MIDAZOLAM HCL 2 MG/2 ML SINGLE DOSE VIAL ONE (07:55)
[2024-01-14] MEDS ORDERED: ONDANSETRON 4 MG/2 ML VIAL ONE (08:18)
[2024-01-14 09:35] VITALS: PULSE 65; RESP 18
[2024-01-14 09:36] VITALS: BP 110/60; TEMP 97.1
== END 2024-01-14 09:36 | disposition home or self-care (01) ==
LOC: FASU 06:35
PROVIDERS: ATTEND Orthopaedic Surgery Hand Surgery
PROC: 01N50ZZ Release Median Nerve, Open Approach (ICD-10-PCS; principal; 2024-01-14 08:14)
DX: G56.02 Carpal tunnel syndrome, left upper limb (principal)
CPT/HCPCS: 82962